=== PATIENT | female | born 1950 | race Caucasian/White ===

== ENCOUNTER 2020-08-09 13:01 | Outpatient (REF) | payer MEDICARE, OTHER, SELFPAY ==
--- NOTE | ~2020-08-09 | US_ITS ---
EXAMINATION: US RETROPERITONEAL LIMITED (RENAL ONLY) CLINICAL INFORMATION: Renal stone. COMPARISON: Ultrasound renals 10/07/2018 and 02/13/2018 TECHNIQUE: Real-time imaging of the kidneys. FINDINGS: RIGHT KIDNEY: 9.2 x 4.6 x 4.6 cm (SAG x AP x TRV). The kidney is normal in size, contour, and echogenicity. Renal cortical thickness is normal. No focal parenchymal lesions or hydronephrosis. There are 2 echogenic stones in lower pole measuring 0.29 x 0.22 x 0.26 cm and 0.3 x 0.21 x 0.32 cm. There is no caliectasis. LEFT KIDNEY: 11.0 x 4.9 x 5.4 cm (SAG x AP x TRV). The kidney is normal in size, contour, and echogenicity. Renal cortical thickness is normal. No calculi or focal parenchymal lesions. No hydronephrosis. There is mild fullness of left kidney pelvis. US/US renal BI IMPRESSION: Nonobstructive 2 echogenic stones in lower pole right kidney, new since the previous study 10/07/2018. No echogenic stone in left kidney. There is no hydronephrosis in either kidney except for minimal fullness in the left kidney pelvis.
== END 2020-08-09 13:02 | disposition home or self-care (01) ==
LOC: HO.US 13:01
PROVIDERS: PCP Internal Medicine; Visit Provider Urology
DX: N20.0 Calculus of kidney (principal)
CPT/HCPCS: 76775

== ENCOUNTER → 2020-09-23 11:53 | Outpatient (BNVA) | payer MEDICARE, OTHER, SELFPAY | PROVIDERS: PCP Internal Medicine | CPT/HCPCS: Q3014 ==

== ENCOUNTER 2021-03-28 09:02 | Outpatient (REF) | payer MEDICARE, OTHER, SELFPAY ==
--- NOTE | ~2021-03-28 | US_ITS ---
EXAMINATION: US RETROPERITONEAL LIMITED (RENAL ONLY) CLINICAL INFORMATION: Calculus of kidney. COMPARISON: Renal ultrasound 08/09/2020 and 10/07/2018. X-ray KUB 07/10/2017. TECHNIQUE: Real-time imaging of the kidneys. FINDINGS: RIGHT KIDNEY: 10.8 x 4.8 x 5.2 cm (SAG x AP x TRV). The kidney is normal in size, contour, and echogenicity. Renal cortical thickness is normal. No focal parenchymal lesions or hydronephrosis. There is an echogenic stone lower pole measuring 0.4 x 0.3 x 0.3 cm. LEFT KIDNEY: 11.5 x 4.8 x 5.1 cm (SAG x AP x TRV). The kidney is normal in size, contour, and echogenicity. Renal cortical thickness is normal. No calculi or focal parenchymal lesions. No hydronephrosis. US/US renal BI IMPRESSION: Echogenic nonobstructive stone lower pole right kidney. Two echogenic stones were seen on the previous exam in the right kidney lower pole. The left kidney is unremarkable.
== END 2021-03-28 09:03 | disposition home or self-care (01) ==
LOC: HO.US 09:02
DX: N20.0 Calculus of kidney (principal)
CPT/HCPCS: 76775

== ENCOUNTER → 2021-04-18 08:16 | Outpatient (BNVA) | payer MEDICARE, OTHER, SELFPAY | PROVIDERS: PCP Internal Medicine | DX: N20.0 Calculus of kidney (principal) | CPT/HCPCS: Q3014 ==

== ENCOUNTER 2021-09-18 08:41 | Outpatient (REF) | payer MEDICARE, OTHER, SELFPAY ==
--- NOTE | ~2021-09-18 | US_ITS ---
EXAMINATION: US RETROPERITONEAL LIMITED (RENAL ONLY) CLINICAL INFORMATION: Calculus of kidney. COMPARISON: US retroperitoneal limited (renal only) 03/28/2021 and 08/09/2020. XR abdomen KUB 07/10/2017. TECHNIQUE: Real-time imaging of the kidneys. FINDINGS: RIGHT KIDNEY: 10.7 x 4.9 x 5.0 cm (SAG x AP x TRV). The kidney is normal in size, contour, and echogenicity. Renal cortical thickness is normal. No focal parenchymal lesions or hydronephrosis. There are 3 specular echoes with twinkling artifact on color Doppler consistent with nonobstructing calculi mid to lower pole, largest measuring only 5 mm. LEFT KIDNEY: 11.9 x 4.9 x 4.4 cm (SAG x AP x TRV). The kidney is normal in size, contour, and echogenicity. Incidental dromedary hump lateral interpolar region. Renal cortical thickness is normal. No focal parenchymal lesions or hydronephrosis. There are specular echoes upper and lower pole with associated twinkling artifact consistent with nonobstructing calculi, larger only 5 mm. US/US renal BI IMPRESSION: -No hydronephrosis or caliectasis. -Bilateral nonobstructing calculi, largest 5 mm.
== END 2021-09-18 08:42 | disposition home or self-care (01) ==
LOC: HO.US 08:41
DX: N20.0 Calculus of kidney (principal)
CPT/HCPCS: 76775

== ENCOUNTER → 2021-09-28 10:37 | Outpatient (BNVA) | payer MEDICARE, OTHER, SELFPAY | DX: N20.0 Calculus of kidney (principal) | CPT/HCPCS: Q3014 ==